=== PATIENT | male | born 1950 | race African-American/Black ===

== ENCOUNTER 2017-02-22 21:24 | Emergency (ER) | payer OTHER ==
--- NOTE | 2017-02-22 21:53 | PHYS DOC ---
General Chief Complaint: ABDOMINAL PAIN Stated Complaint: N/V/D,ABDOMINAL PAIN Time Seen by MD: 21:26 Source: EMS, other Exam Limitations: no limitations Problems: History of Present Illness Initial Comments I was notified by ED staff that the patient was sent over via EMS from the [facility] for right upper quadrant abdomen and ultrasound evaluation to rule out cholecystitis. No report was called from the [facility], and upon arrival there would be a 20 minute delay before ultrasound arrives to do the study. EMS wants to leave the department and come back for the patient after the study has been completed. ED volume is very high and the ergonomics technician is unable to stay down with the patient and observe them. The ED director determined the patient would be admitted for the duration of the ultrasound evaluation and then transferred back to the [facility] for further evaluation, ultrasound results, and treatment. I did not speak with or evaluate the patient and the history is relayed to me by ED staff. Vital signs are stable according to documentation. Timing/Duration: unsure Associated Symptoms: other (it is reported that the patient has had abdominal pain nausea and vomiting) Allergies: Coded Allergies: No Known Drug Allergies (Unverified , 02/22/17) Past Medical History Medical History: other Surgical History: other Review of Systems All Other Systems: Reviewed and Negative (review of systems not obtained or completed) Physical Exam General Appearance: other (I did not speak with or evaluate the patient) Orders, Labs, Meds Patient is to be discharged upon completion of ultrasound [facility] ED staff will notify me if any urgent needs to occur while he is waiting for transfer back to the facility. Departure Time of Disposition: 21:52 Disposition: 02 XFER [facility] Diagnosis: need for ultrasound, report of right upper quadran Condition: STABLE Additional Instructions: EMS transfer back to the [facility] for further evaluation and treatment. RADHIKA ENNIS DO Feb 22, 2017 21:53
[2017-02-22 22:07] VITALS: BP 121/52
--- NOTE | 2017-02-22 22:29 | RAD ---
Limited ultrasound abdomen February 20, 2017 INDICATION: Pain, nausea vomiting and diarrhea. Fever. COMPARISON: None available TECHNIQUE: Sonographic evaluation of the right upper quadrant was performed utilizing grayscale and color Doppler. FINDINGS: Pancreas is normal as visualized. Liver is normal in echogenicity without evidence for focal mass. There is mild intrahepatic biliary ductal dilatation. There is hepatopedal flow within the portal venous system. Common bile duct measures 3 mm. IVC is patent. Calcified gallstones are identified within the gallbladder. There is borderline gallbladder wall thickening measuring 3 mm. Negative sonographic Cote sign. No pericholecystic fluid. There is no free fluid in the right upper quadrant. IMPRESSION: 1. Cholelithiasis with borderline gallbladder wall thickening. Findings are equivocal for acute cholecystitis in the absence of pericholecystic fluid and with a negative sonographic Cote sign. Further evaluation with HIDA may be of benefit. 2. Suspect mild intrahepatic biliary ductal dilatation. However, common bile duct measures 3 mm. Electronically signed by: Marilyn Saez MD (02/22/2017 10:26 PM) [facility]
== END 2017-02-22 22:54 | disposition short-term general hospital (02) ==
LOC: ER 21:24
DX: K80.20 Calculus of gallbladder without cholecystitis without obstruction (principal)
CPT/HCPCS: 76705; 99285-25